=== PATIENT | male | born 1975 | race African-American/Black ===

== ENCOUNTER 2017-02-04 06:36 | Emergency (ER) | payer OTHER ==
[~2017-02-04] VITALS: Ht 177.8 cm; Wt 80.0 kg
[~2017-02-04 06:36] MED LIST: SELE2.5%T TOP
[2017-02-04 06:37] VITALS: BP 115/59; PULSE 73; RESP 16; TEMP 98.3; O2SAT 95
[2017-02-04] MEDS ORDERED: SODIUM CHLORIDE 0.9% FLUSH 10 ML FLUSH IVF PRN (07:00)
[2017-02-04 07:15] VITALS: O2SAT 98
--- NOTE | 2017-02-04 07:21 | PD ---
HPI Chief Complaint: Psychiatric Symptoms Time Seen by Provider: 07:02 Travel History International Travel<30 days: No Contact w/Intl Traveler<30days: No Traveled to known affect area: No History of Present Illness HPI 41yo M presents to the ED under staley act for suicidal ideation. Pt called and was found to be holding a razor to cut his wrist but did not cut his wrist and instead [place] the razor [place] the [employer]. As per staley act, pt may have taken some pills too but pt is refusing to speak and answer questions. Pt is awake and alert. Refuse to answer questions. No signs of trauma. Pt has been here before for similar suicidal ideation. Pt was here on 01/17/17 and found to have drug induced mood disorder. PFSH Past Medical History Blood Disorders: No Anxiety: No Depression: Yes Cardiac Catheterization: No Cardiovascular Problems: No High Cholesterol: No Congestive Heart Failure: No Diabetes: No Endocrine: No Gastrointestinal Disorders: Yes GERD: Yes Genitourinary: No Hypertension: No Immune Disorder: No Implanted Vascular Access Dvce: No Musculoskeletal: No Neurologic: No Psychiatric: Yes Reproductive: No Respiratory: No Past Surgical History Surgical History: Unable to Obtain Coronary Artery Bypass Graft: No Family History Family Myocardial Infarction: Yes Social History Alcohol Use: Yes Tobacco Use: Yes Substance Use: Yes (ALCOHOL, COCAINE, MARIJUANA- PER PATIENT) Allergies-Medications (Allergen,Severity, Reaction): Coded Allergies: No Known Allergies (Verified , 02/04/17) Reported Meds & Prescriptions Reported Meds & Active Scripts Active Active Prescriptions or Reported Medications Unobtainable Review of Systems ROS Limitations: Clinical Condition Physical Exam Narrative GENERAL: 41yo M not in distress. SKIN: Focused skin assessment warm/dry. HEAD: Atraumatic. Normocephalic. EYES: Pupils equal and round at 3mm bilaterally. ENT: No nasal bleeding or discharge. Mucous membranes pink and moist. NECK: Trachea midline. No JVD. CARDIOVASCULAR: Regular rate and rhythm. No murmur appreciated. RESPIRATORY: No accessory muscle use. Clear to auscultation. Breath sounds equal bilaterally. GASTROINTESTINAL: Abdomen soft, non-tender, nondistended. MUSCULOSKELETAL: No obvious deformities. No clubbing. No cyanosis. No edema. NEUROLOGICAL: Awake and alert. Not answering questions or following commands but has legs cross and able to move extremities. Data Data Last Documented VS Vital Signs Date Time Temp Pulse Resp B/P Pulse Ox O2 Delivery O2 Flow Rate FiO2 02/05/17 06:07 69 18 130/76 98 Room Air 02/04/17 06:37 98.3 Orders Electrocardiogram (02/04/17 06:49) Complete Blood Count With Diff (02/04/17 06:49) Comprehensive Metabolic Panel (02/04/17 06:49) Iv Access Insert/Monitor (02/04/17 06:49) Ecg Monitoring (02/04/17 06:49) Oximetry (02/04/17 06:49) Psych Screen (02/04/17 06:49) Sodium Chloride 0.9% Flush (Ns Flush) (02/04/17 07:00) Drug Screen, Random Urine (02/04/17 06:49) Alcohol (Ethanol) (02/04/17 06:49) Salicylates (Aspirin) (02/04/17 06:49) Tylenol (Acetaminophen) (02/04/17 06:49) Ct Brain W/O Iv Contrast(Rout) (02/04/17 ) Restraints Non-Violent SUZANNE.Q3H (02/04/17 09:11) Restraints Non-Violent SUZANNE.Q3H (02/04/17 11:00) Diet Regular Basic (02/05/17 Breakfast) Labs Laboratory Tests Test 02/04/17 02/04/17 07:00 07:10 Urine Opiates Screen NEG Urine Barbiturates Screen NEG Urine Amphetamines Screen NEG Urine Benzodiazepines Screen NEG Urine Cocaine Screen POS Urine Cannabinoids Screen NEG White Blood Count 10.1 TH/MM3 Red Blood Count 5.11 MIL/MM3 Hemoglobin 15.1 GM/DL Hematocrit 44.9 % Mean Corpuscular Volume 87.9 FL Mean Corpuscular Hemoglobin 29.5 PG Mean Corpuscular Hemoglobin 33.6 % Concent Red Cell Distribution Width 14.8 % Platelet Count 304 TH/MM3 Mean Platelet Volume 8.8 FL Neutrophils (%) (Auto) 65.9 % Lymphocytes (%) (Auto) 26.4 % Monocytes (%) (Auto) 6.4 % Eosinophils (%) (Auto) 0.7 % Basophils (%) (Auto) 0.6 % Neutrophils # (Auto) 6.7 TH/MM3 Lymphocytes # (Auto) 2.7 TH/MM3 Monocytes # (Auto) 0.6 TH/MM3 Eosinophils # (Auto) 0.1 TH/MM3 Basophils # (Auto) 0.1 TH/MM3 CBC Comment DIFF FINAL Differential Comment Sodium Level 140 MEQ/L Potassium Level 3.7 MEQ/L Chloride Level 103 MEQ/L Carbon Dioxide Level 23.4 MEQ/L Anion Gap 14 MEQ/L Blood Urea Nitrogen 10 MG/DL Creatinine 1.61 MG/DL Estimat Glomerular Filtration 58 ML/MIN Rate Random Glucose 107 MG/DL Calcium Level 9.5 MG/DL Total Bilirubin 0.3 MG/DL Aspartate Amino Transf 19 U/L (AST/SGOT) Alanine Aminotransferase 22 U/L (ALT/SGPT) Alkaline Phosphatase 76 U/L Total Protein 8.3 GM/DL Albumin 4.4 GM/DL Salicylates Level 2.9 MG/DL Acetaminophen Level LESS THAN 2.0 MCG/ML Ethyl Alcohol Level 7 MG/DL [facility] Medical Decision Making Medical Screen Exam Complete: Yes Emergency Medical Condition: Yes Interpretation(s) EKG: Sinus bradycardia at 58bpm. LAD. Narrow QRS. QTc 393ms. Differential Diagnosis Drug induced mood disorder vs. psychosis Narrative Course 41yo M brought in as staley act for suicidal ideation. Pt will only talk if you agitate him. Labs reviewed, no leukocytosis. Creatinine elevated but at baseline. CT brain showed moderate motion artifact, negative for acute process. Urine drug screen positive cocaine. Pt is being a threat to himself and others. Pt was initially placed in soft restraints but pulled them out so eventually placed in leather restraints. Pt is medically clear to be seen by psych. Diagnosis Primary Impression: Mood disorder, drug-induced Scripts Unable to Obtain Active Prescriptions or Reported Meds Kate Wilson DO Feb 04, 2017 07:20
[2017-02-04 07:31] LABS: AUTOMATED NEUTROPHIL # 6.7 TH/MM3 (1.8-7.7); BASOPHIL # 0.1 TH/MM3 (0-0.2); BASOPHIL % 0.6 % (0.0-2.0); EOSINOPHIL # 0.1 TH/MM3 (0-0.4); EOSINOPHIL % 0.7 % (0.0-4.0); HEMATOCRIT 44.9 % (39.0-51.0); HEMO FLAGS DIFF FINAL; LYMPH % 26.4 % (9.0-44.0); LYMPHOCYTE # 2.7 TH/MM3 (1.0-4.8); MEAN CELL VOLUME 87.9 FL (80.0-100.0); MEAN CORPUSCULAR HEMOGLOBIN 29.5 PG (27.0-34.0); MEAN CORPUSCULAR HGB CONC 33.6 % (32.0-36.0); MONO % 6.4 % (0.0-8.0); NEUT % 65.9 % (16.0-70.0); PLATELET COUNT 304 TH/MM3 (150-450); RED BLOOD COUNT 5.11 MIL/MM3 (4.50-5.90); RED CELL DISTRIBUTION WIDTH 14.8 % (11.6-17.2); WHITE BLOOD COUNT 10.1 TH/MM3 (4.0-11.0)
[2017-02-04 07:39] LABS: AMPHETAMINE, URINE NEG (NEG); BARBITURATES, URINE NEG (NEG); COCAINE, URINE POS (NEG)
[2017-02-04 07:48] LABS: ANION GAP 14 MEQ/L (5-15)
[2017-02-04 07:51] LABS: ACETAMINOPHEN LESS THAN 2.0 MCG/ML (10.0-30.0); ALKALINE PHOSPHATASE 76 U/L (45-117); ALT (GPT) 22 U/L (12-78); AST (GOT) 19 U/L (15-37); BICARBONATE 23.4 MEQ/L (21.0-32.0); BLOOD UREA NITROGEN 10 MG/DL (7-18); CHLORIDE 103 MEQ/L (98-107); GLOMERULAR FILTRATION RATE 58 ML/MIN (>89); POTASSIUM 3.7 MEQ/L (3.5-5.1); SODIUM (NA) 140 MEQ/L (136-145); TOTAL BILIRUBIN ADULT 0.3 MG/DL (0.2-1.0)
--- NOTE | 2017-02-04 08:54 | RADRPT ---
EXAM DATE/TIME: 02/04/2017 08:13 [facility] COMPARISON: No previous studies available for comparison. INDICATIONS : Altered mental status RADIATION DOSE: 35.27 CTDIvol (mGy) MEDICAL HISTORY : Gastroesophageal reflux disease. SURGICAL HISTORY : None. ENCOUNTER: Initial ACUITY: 1 day PAIN SCALE: Non-responsive LOCATION: cranial TECHNIQUE: Multiple contiguous axial images were obtained of the head. Using automated exposure control and adj ustment of the mA and/or kV according to patient size, radiation dose was kept as low as reasonably a chievable to obtain optimal diagnostic quality images. Moderate motion artifact is present. FINDINGS: CEREBRUM: The ventricles are normal for age. No evidence of midline shift, mass lesion, hemorrhage or acute in farction. No extra-axial fluid collections are seen. POSTERIOR FOSSA: The cerebellum and brainstem are intact. The 4th ventricle is midline. The cerebellopontine angle i s unremarkable. EXTRACRANIAL: The visualized portion of the orbits is intact. SKULL: The calvaria is intact. No evidence of skull fracture. CONCLUSION: Moderate motion artifact, negative for acute process. Preston Hernandez MD FACR on February 04, 2017 at 8:52 Board Certified Radiologist. This report was verified electronically.
[2017-02-04 14:00] VITALS: BP 151/93; PULSE 103; RESP 22; O2SAT 98
[2017-02-04 18:00] VITALS: BP 142/103; PULSE 96; RESP 18; O2SAT 97
[2017-02-04 21:23] VITALS: BP 135/98; PULSE 80; RESP 18; O2SAT 100
[2017-02-04 22:16] VITALS: BP 120/73; PULSE 84; RESP 18; O2SAT 97
[2017-02-05 02:21] VITALS: BP 124/73; PULSE 99; RESP 19; O2SAT 96
[2017-02-05 06:07] VITALS: BP 130/76; PULSE 69; RESP 18; O2SAT 98
--- NOTE | 2017-02-05 10:38 | EKG ---
Date Performed: 02/04/2017 Time Performed: 07:07:08 PTAGE: 41 years EKG: SINUS BRADYCARDIA BORDERLINE LEFT AXIS DEVIATION BORDERLINE ECG Compared to prior tracing n o significant change PREVIOUS TRACING : 08/10/2015 07.26 DOCTOR: Odilia Monroe Interpretating Date/Time 02/05/2017 10:33:26
--- NOTE | 2017-02-05 14:48 | PD ---
History of Present Illness Chief Complaint: Psychiatric Symptoms Time Seen by Provider: 14:30 Travel History International Travel<30 Days: No Contact w/Intl Traveler<30days: No Known affected area: No Legal Status Legal Status: Manning Act Manning Act Signed By: Bernard Manning Act Comment: 2016 @ 1814 History of Present Illness: 41-year-old male with recent history of suicidal behavior including holding a razor blade to his wrist and then throwing the razor blade at police. Multiple complaints of suicidal ideation with plan if he is not admitted. Admits to recent cocaine abuse as well as marijuana abuse and a history of other drug abuse. States that he uses cocaine to calm himself down. Patient was here approximately 2-3 weeks ago with similar behavior and similar complaints and a diagnosis of drug induced mood disorder. Additionally, the patient wants this physician to write him a medical excuse so that he will not lose his job at the [employer]. Patient also admits he has a mother who lives in [facility] and is supportive. He has a partner in a relationship and a place to live. Patient was confronted with his contradictory attitudes and behavior and at that point asked to leave. He is not threatening suicide at the moment but the patient is felt to be very manipulative and capable of acting out at any time. Despite these dangers, this physician does not feel it is appropriate to admit the patient for inpatient psychiatric treatment. This is not a license detoxed or rehabilitation facility and it is counter therapeutic to admit the patient and his manipulative state. PFSH Past Medical History Medical History: Denies Significant Hx Blood Disorders: No Anxiety: No Depression: Yes Cardiac Catheterization: No Cardiovascular Problems: No High Cholesterol: No Congestive Heart Failure: No Diabetes: No Endocrine: No Gastrointestinal Disorders: Yes GERD: Yes Genitourinary: No Hypertension: No Immune Disorder: No Implanted Vascular Access Dvce: No Musculoskeletal: No Neurologic: No Psychiatric: Yes Reproductive: No Respiratory: No Past Surgical History Surgical History: Unable to Obtain Coronary Artery Bypass Graft: No Psychiatric History Psychiatric History Hx Psychiatric Treatment: NONE PER PATIENT History of Inpatient Treatment: Yes Social History Hx Alcohol Use: Yes Hx Tobacco Use: Yes Hx Substance Use: Yes (ALCOHOL, COCAINE, MARIJUANA- PER PATIENT) Substance Use Type: Alcohol, Marijuana, Cocaine Allergies-Medications (Allergen,Severity, Reaction): Coded Allergies: No Known Allergies (Verified , 02/04/17) Reported Meds & Prescriptions Reported Meds & Active Scripts Active Active Prescriptions or Reported Medications Unobtainable Review of Systems ROS Limitations: Clinical Condition Except as stated in HPI: all other systems reviewed are Neg Exam Exam Limitations: Clinical Condition Alert: Yes [place]: Person, Place, Date, Situation Mood: Calm Affect: Appropriate Speech: Clear, Logical Eye Contact: Indirect Memory Intact: Immediate, Recent, Remote Insight/Judgement Adequate except impaired with regard to drug abuse. [facility] Medical Decision Making Medical Record Reviewed: Yes Assessment/Plan In my opinion, the patient does not meet criteria for Manning act because his main problem is cocaine abuse. Furthermore, he does not meet criteria for admission to inpatient psychiatry due to the cocaine abuse and his manipulative nature at this time. He was given an excuse from work for the last 2 days in case he decides to return to work. This physician acknowledges there are risks and discharging the patient home but feels we must accept those risks rather than give into the patient's manipulations. Patient is competent to make all medical decisions and is not psychotic or cognitively compromised in any way. Orders Diet Regular Basic (02/05/17 Breakfast) Diet Regular Basic (02/05/17 Lunch) Diet Regular Basic (02/05/17 Dinner) Results Vital Signs Date Time Temp Pulse Resp B/P Pulse Ox O2 Delivery O2 Flow Rate FiO2 02/05/17 06:07 69 18 130/76 98 Room Air 02/05/17 02:21 99 19 124/73 96 Room Air 02/04/17 22:16 84 18 120/73 97 Room Air 02/04/17 21:23 80 18 135/98 100 Room Air 02/04/17 18:00 96 18 142/103 97 Room Air Diagnosis Primary Impression: Cocaine abuse Referrals: [facility] (Out patient) call for appointment Departure Forms: Tests/Procedures Patient Instructions: General Instructions, Cocaine Abuse (ED) Prescriptions Unable to Obtain Active Prescriptions or Reported Meds Disposition: 01 DISCHARGE HOME Mac Wu MD Feb 05, 2017 14:48
== END 2017-02-05 15:39 | disposition home or self-care (01) ==
LOC: NEPE 06:36 → NEPJ 02-05 15:39
DX: F14.10 Cocaine abuse, uncomplicated (principal); R45.851 Suicidal ideations; F32.9 Major depressive disorder, single episode, unspecified; Z72.0 Tobacco use; R00.1 Bradycardia, unspecified; F10.10 Alcohol abuse, uncomplicated
CPT/HCPCS: 70450; 80053; 80307; 85025; 93005

== ENCOUNTER 2017-02-12 23:32 | Emergency (ER) | payer SELFPAY ==
[~2017-02-12] VITALS: Ht 170.2 cm; Wt 88.0 kg
[2017-02-12 23:33] VITALS: BP 145/94; PULSE 86; RESP 24; TEMP 98.7; O2SAT 100
[2017-02-12] MEDS ORDERED: ASPIRIN 81 MG CHEW TAB PO ONE (23:45)
[2017-02-12] MEDS ORDERED: SODIUM CHLORIDE 0.9% FLUSH 10 ML FLUSH IVF PRN (23:45)
[2017-02-12] MEDS ORDERED: SODIUM CHLORID 0.9% 500 ML INJ 500 ML IV ONE (23:45)
[2017-02-13 00:01] LABS: AUTOMATED NEUTROPHIL # 4.6 TH/MM3 (1.8-7.7); BASOPHIL # 0.1 TH/MM3 (0-0.2); BASOPHIL % 1.1 % (0.0-2.0); EOSINOPHIL # 0.2 TH/MM3 (0-0.4); EOSINOPHIL % 1.8 % (0.0-4.0); HEMATOCRIT 36.4 % (39.0-51.0); LYMPH % 41.1 % (9.0-44.0); MEAN CELL VOLUME 85.2 FL (80.0-100.0); MEAN CORPUSCULAR HEMOGLOBIN 30.7 PG (27.0-34.0); MONO % 9.2 % (0.0-8.0); NEUT % 46.8 % (16.0-70.0); PLATELET COUNT 303 TH/MM3 (150-450); RED BLOOD COUNT 4.27 MIL/MM3 (4.50-5.90); RED CELL DISTRIBUTION WIDTH 13.9 % (11.6-17.2); WHITE BLOOD COUNT 9.8 TH/MM3 (4.0-11.0)
[2017-02-13 00:05] LABS: HEMO FLAGS AUTO DIFF
--- NOTE | 2017-02-13 00:05 | RADRPT ---
EXAM DATE/TIME: 02/12/2017 23:44 [facility] COMPARISON: No previous studies available for comparison. INDICATIONS : Chest pain. MEDICAL HISTORY : None. SURGICAL HISTORY : None. ENCOUNTER: Initial ACUITY: 1 day PAIN SCORE: 0/10 LOCATION: Bilateral chest FINDINGS: A single view of the chest demonstrates the lungs to be symmetrically aerated without evidence of mas s, infiltrate or effusion. The cardiomediastinal contours are unremarkable. Osseous structures are intact. CONCLUSION: No acute disease. Rodolfo Mcdowell MD on February 13, 2017 at 0:03 Board Certified Radiologist. This report was verified electronically.
[2017-02-13 00:18] VITALS: BP 168/81; PULSE 72; RESP 18; O2SAT 99
[2017-02-13 00:20] LABS: APTT (PATIENT) 26.4 SEC (24.3-30.1); PROTHROMBIN TIME - PATIENT 10.7 SEC (9.8-11.6)
--- NOTE | 2017-02-13 00:21 | PD ---
HPI Chief Complaint: Cardiac Complaint Time Seen by Provider: 23:34 Travel History International Travel<30 days: No Contact w/Intl Traveler<30days: No Traveled to known affect area: No History of Present Illness HPI The patient is a 42 year old male who presents to the [facility] emergency department with a history of awakening from sound sleep with a sensation that his heart was racing. The patient reports that he had an associated dry throat and shortness of breath. The patient reports that prior to going to sleep at approximately 9 PM he did use that he thought was cocaine. He reports that when he used that he did not feel the same effects, therefore he is concerned that it was something else that he took. The patient reports that he had a dry throat prior to going to sleep. He denies having any chest pain. The patient was brought in by ambulance services was noted initially to have a sinus tachycardia with heart rate in the 130s. On my arrival to the room, the patient 's heart rate is in the 80s. He denies having any history of coronary artery disease. The patient denies any recent fevers, cough, congestion, neck pain, abdominal pain, vomiting, diarrhea, urinary symptoms, or neurologic symptoms. [facility] Past Medical History Narrative Medical The patient's past medical history is significant for tobacco use, cocaine use. Blood Disorders: No Anxiety: No Depression: Yes Cardiac Catheterization: No Cardiovascular Problems: No High Cholesterol: No Congestive Heart Failure: No Diabetes: No Endocrine: No Gastrointestinal Disorders: Yes GERD: Yes Genitourinary: No Hypertension: No Immune Disorder: No Implanted Vascular Access Dvce: No Musculoskeletal: No Neurologic: No Psychiatric: Yes Reproductive: No Respiratory: No Past Surgical History Narrative Surgical The patient's past surgical history is reportedly none. Coronary Artery Bypass Graft: No Other Surgery: No Family History Family Myocardial Infarction: Yes Social History Alcohol Use: Yes (1-3 BEERS PER DAY) Tobacco Use: Yes (1 PACK Q 3 DAYS) Substance Use: Yes (ALCOHOL, COCAINE, MARIJUANA- PER PATIENT) Allergies-Medications (Allergen,Severity, Reaction): Coded Allergies: No Known Allergies (Verified , 02/12/17) Reported Meds & Prescriptions Reported Meds & Active Scripts Active Active Prescriptions or Reported Medications Unobtainable Review of Systems Except as stated in HPI: all other systems reviewed are Neg General / Constitutional: No: Fever Eyes: No: Visual changes HENT: No: Headaches Cardiovascular: Positive: Chest Pain or Discomfort Respiratory: Positive: Shortness of Breath Gastrointestinal: No: Nausea, Vomiting, Diarrhea, Abdominal Pain Genitourinary: No: Dysuria Musculoskeletal: No: Pain Skin: No Rash Neurologic: No: Weakness, Focal Abnormalities, Change in Mentation, Sensory Disturbance Psychiatric: Positive: Substance Abuse, No: Depression, Suicidal Ideations, Mood Disorder, Homicidal Ideation Endocrine: No: Polydipsia Hematologic/Lymphatic: No: Easy Bruising Physical Exam Narrative General: The patient is a well-developed well-nourished female in no acute distress. Head and Neck exam: Head is normocephalic atraumatic. Eyes: EOMI, pupils are equal round and reactive to light. Nose: Midline septum with pink mucous membranes Mouth: Dentition unremarkable. Moist mucus membranes. Posterior oropharynx is not erythematous. No tonsillar hypertrophy. Uvula midline. Airway patent. Neck: No palpable lymphadenopathy. No nuchal rigidity. No thyromegaly. Cardiovascular: Regular rate and rhythm without murmurs, gallops, or rubs. No pulse deficit to the extremities simultaneously auscultation and palpation of his radial artery. Lungs: Clear to auscultation bilaterally. No wheezes, rhonchi, or rales. Abdomen: Soft, without tenderness to palpation in all 4 quadrants of the abdomen. No guarding, rebound, or rigidity. Normal bowel sounds are audible. No tenderness on palpation of McBurney's point. Extremities: No clubbing, cyanosis, or edema. 2+ pulses in all 4 extremities. Back: No spinous process tenderness to palpation. No costovertebral angle tenderness to palpation. Neurologic Exam: Cranial nerves 2-12 were intact on exam. Strength is 5/5 in all 4 extremities. No sensory deficits noted. Skin Exam: No rash noted. Intact skin that is warm and dry. Data Data Last Documented VS Vital Signs Date Time Temp Pulse Resp B/P Pulse Ox O2 Delivery O2 Flow Rate FiO2 02/13/17 00:50 84 20 142/96 99 Room Air 02/12/17 23:33 98.7 Orders Electrocardiogram (02/12/17 23:38) B-Type Natriuretic Peptide (02/12/17 23:38) Ckmb (Isoenzyme) Profile (02/12/17 23:38) Complete Blood Count With Diff (02/12/17 23:38) Comprehensive Metabolic Panel (02/12/17 23:38) Magnesium (Mg) (02/12/17 23:38) Prothrombin Time / Inr (Pt) (02/12/17 23:38) Act Partial Throm Time (Ptt) (02/12/17 23:38) Troponin I (02/12/17 23:38) Lipase (02/12/17 23:38) Chest, Single Ap (02/12/17 23:38) Ecg Monitoring (02/12/17 23:38) Bilateral Bp Monitoring (02/12/17 23:38) Iv Access Insert/Monitor (02/12/17 23:38) Oximetry (02/12/17 23:38) Oxygen Administration (02/12/17 23:38) Aspirin Chew (Aspirin Chew) (02/12/17 23:45) Sodium Chloride 0.9% Flush (Ns Flush) (02/12/17 23:45) Sodium Chlorid 0.9% 500 Ml Inj (Ns 500 M (02/12/17 23:45) Drug Screen, Random Urine (02/13/17 00:06) Alcohol (Ethanol) (02/13/17 00:06) Salicylates (Aspirin) (02/13/17 00:06) Tylenol (Acetaminophen) (02/13/17 00:06) CKMB (02/12/17 23:41) CKMB% (02/12/17 23:41) Sodium Chlor 0.9% 1000 Ml Inj (Ns 1000 M (02/13/17 01:30) Sodium Chlorid 0.9% 500 Ml Inj (Ns 500 M (02/13/17 02:00) Labs Laboratory Tests Test 02/12/17 02/13/17 02/13/17 23:41 00:20 00:38 White Blood Count 9.8 TH/MM3 Red Blood Count 4.27 MIL/MM3 Hemoglobin 13.1 GM/DL Hematocrit 36.4 % Mean Corpuscular Volume 85.2 FL Mean Corpuscular Hemoglobin 30.7 PG Mean Corpuscular Hemoglobin 36.0 % Concent Red Cell Distribution Width 13.9 % Platelet Count 303 TH/MM3 Mean Platelet Volume 8.8 FL Neutrophils (%) (Auto) 46.8 % Lymphocytes (%) (Auto) 41.1 % Monocytes (%) (Auto) 9.2 % Eosinophils (%) (Auto) 1.8 % Basophils (%) (Auto) 1.1 % Neutrophils # (Auto) 4.6 TH/MM3 Lymphocytes # (Auto) 4.0 TH/MM3 Monocytes # (Auto) 0.9 TH/MM3 Eosinophils # (Auto) 0.2 TH/MM3 Basophils # (Auto) 0.1 TH/MM3 CBC Comment AUTO DIFF Differential Comment AUTO DIFF CONFIRMED Prothrombin Time 10.7 SEC Prothromb Time International 1.0 RATIO Ratio Activated Partial 26.4 SEC Thromboplast Time Sodium Level 140 MEQ/L Potassium Level 4.2 MEQ/L Chloride Level 106 MEQ/L Carbon Dioxide Level 25.9 MEQ/L Anion Gap 8 MEQ/L Blood Urea Nitrogen 12 MG/DL Creatinine 1.49 MG/DL Estimat Glomerular Filtration 63 ML/MIN Rate Random Glucose 106 MG/DL Calcium Level 9.3 MG/DL Magnesium Level 2.2 MG/DL Total Bilirubin LESS THAN 0.1 MG/DL Aspartate Amino Transf 34 U/L (AST/SGOT) Alanine Aminotransferase 49 U/L (ALT/SGPT) Alkaline Phosphatase 69 U/L Total Creatine Kinase 977 U/L Creatine Kinase MB 4.4 NG/ML Creatine Kinase MB % 0.5 % Troponin I LESS THAN 0.02 NG/ML B-Type Natriuretic Peptide 27 PG/ML Total Protein 6.9 GM/DL Albumin 3.5 GM/DL Lipase 79 U/L Salicylates Level 2.5 MG/DL Acetaminophen Level LESS THAN 2.0 MCG/ML Ethyl Alcohol Level LESS THAN 3 MG/DL Urine Opiates Screen NEG Urine Barbiturates Screen NEG Urine Amphetamines Screen NEG Urine Benzodiazepines Screen NEG Urine Cocaine Screen POS Urine Cannabinoids Screen NEG MDM Medical Decision Making Medical Screen Exam Complete: Yes Emergency Medical Condition: Yes Medical Record Reviewed: Yes Interpretation(s) Last Impressions Chest X-Ray 02/12/17 9093 Signed Impressions: Service Date/Time: Sunday, February 12, 2017 23:44 - CONCLUSION: No acute disease. Rodolfo Mcdowell MD Differential Diagnosis Cocaine-induced palpitations, versus other substance induced tachycardia, versus acute coronary syndrome, versus anxiety disorder, versus electrolyte abnormality, versus dehydration Narrative Course During the course of the patients emergency department visit, the patients history, examination, and differential diagnosis were reviewed with the patient. The patient had IV access obtained and blood work sent for analysis. The patient's best on a air sampling and monitoring with oximetry and blood pressure monitoring. The patient's electronic medical record was reviewed. The patient was admitted to the chest pain center last and April 2015 and had a negative stress test done at that time. An EKG done on arrival shows a sinus rhythm heart rate of 74, no acute ST segment elevation, T waves are inverted in V1, lead 3, no acute ST segment depression. QRS duration is 85 ms, QTC is 379 ms. No delta waves noted. The patient was provided normal saline a 500 mL bolus 1, aspirin 162 mg by mouth 1. The patients laboratory studies were reviewed and remarkable for a white count of 9.8, hemoglobin 13.1, platelets 303 with 9.2 monocytes. CMP is remarkable for creatinine of 1.49, total bilirubin less than 0.1, CPK 977 with an MB percent of 0.5, troponin I less than 0.02, BNP is 27, lipase 79, PT PTT within normal limits, urine drug screen is positive for cocaine, salicylate 2.5, acetaminophen less than 2, alcohol less than 3. Radiology studies were reviewed and remarkable for a chest x-ray that shows no acute abnormality. The patient was given an additional 1-1/2 L of normal saline for his elevated CPK which is likely related to cocaine use. He is encouraged to avoid cocaine as this can cause palpitations and chest pain. The patient was agreeable with this plan. The patient reports feeling improved. The patient is resting comfortably and feels better, is alert and in no distress. The patients results and examination findings were discussed with the patient. The repeat examination is unremarkable and benign. The history, exam, diagnostic testing, and current condition do not suggest any significant pathology to warrant further testing, continued ED treatment, admission, or surgical evaluation at this point. The vital signs have been stable. The patient does not have uncontrollable pain, intractable vomiting, or other significant symptoms. The patient's condition is stable and appropriate for discharge. The patient will pursue further outpatient evaluation with a primary care physician or other designated or consulting physician as indicated in the discharge instructions. The patient expressed understanding and was agreeable with this plan. Diagnosis Primary Impression: Palpitations Additional Impression: Cocaine use Referrals: Primary Care Physician 2 days Patient Instructions: General Instructions, Palpitations (ED) Departure Forms: Tests/Procedures, Work Release Enter return to work date: Feb 14, 2017 Scripts Unable to Obtain Active Prescriptions or Reported Meds Disposition: 01 DISCHARGE HOME Condition: Bina Mccoy MD Feb 13, 2017 00:21
[2017-02-13 00:26] LABS: ALKALINE PHOSPHATASE 69 U/L (45-117); ALT (GPT) 49 U/L (12-78); ANION GAP 8 MEQ/L (5-15); AST (GOT) 34 U/L (15-37); BICARBONATE 25.9 MEQ/L (21.0-32.0); BLOOD UREA NITROGEN 12 MG/DL (7-18); CHLORIDE 106 MEQ/L (98-107); CREATINE KINASE 977 U/L (39-308); GLOMERULAR FILTRATION RATE 63 ML/MIN (>89); MAGNESIUM 2.2 MG/DL (1.5-2.5); POTASSIUM 4.2 MEQ/L (3.5-5.1); SODIUM (NA) 140 MEQ/L (136-145); TOTAL BILIRUBIN ADULT LESS THAN 0.1 MG/DL (0.2-1.0)
[2017-02-13 00:39] LABS: CKMB 4.4 NG/ML (0.5-3.6)
[2017-02-13 00:50] VITALS: BP 142/96; PULSE 84; RESP 20; O2SAT 99
[2017-02-13 01:01] LABS: AMPHETAMINE, URINE NEG (NEG); BARBITURATES, URINE NEG (NEG); COCAINE, URINE POS (NEG)
[2017-02-13 01:07] LABS: ACETAMINOPHEN LESS THAN 2.0 MCG/ML (10.0-30.0)
[2017-02-13 01:17] LABS: SCAN/DIFF AUTO DIFF CONFIRMED
[2017-02-13] MEDS ORDERED: SODIUM CHLOR 0.9% 1000 ML INJ 1,000 ML IV ONE (01:30)
[2017-02-13] MEDS ORDERED: SODIUM CHLORID 0.9% 500 ML INJ 500 ML IV ONE (02:00)
[2017-02-13 02:42] VITALS: BP 140/85
--- NOTE | 2017-02-13 11:54 | EKG ---
Date Performed: 02/12/2017 Time Performed: 23:41:39 PTAGE: 42 years EKG: Sinus rhythm BORDERLINE LEFT AXIS DEVIATION BORDERLINE ECG PREVIOUS TRACING : 02/04/2017 07.07 DOCTOR: Torres Up Interpretating Date/Time 02/13/2017 11:50:49
== END 2017-02-13 02:43 | disposition home or self-care (01) ==
LOC: NEPE 23:32
DX: R00.2 Palpitations (principal); F14.90 Cocaine use, unspecified, uncomplicated; R06.02 Shortness of breath; F17.210 Nicotine dependence, cigarettes, uncomplicated; R94.31 Abnormal electrocardiogram [ECG] [EKG]
CPT/HCPCS: 71010; 80053; 80307; 82550; 82552; 83690; 83735; 83880; 84484; 85025; 85610; 85730; 93005; 96360; 99285; J7030; J7040

== ENCOUNTER 2017-04-27 19:10 | Emergency (ER) | payer SELFPAY ==
[~2017-04-27] VITALS: Ht 170.2 cm; Wt 92.0 kg
[2017-04-27 19:13] VITALS: BP 125/74; PULSE 75; RESP 16; TEMP 98.1; O2SAT 99
[2017-04-27] MEDS ORDERED: CEPHALEXIN MONOHYDRATE 500 MG CAP PO ONE (21:15)
[2017-04-27] MEDS ORDERED: CEPH500C PO (21:16)
--- NOTE | 2017-04-27 21:24 | PD ---
HPI Chief Complaint: Laceration/Skin Injury Time Seen by Provider: 21:19 Travel History International Travel<30 days: No Contact w/Intl Traveler<30days: No Traveled to known affect area: No History of Present Illness HPI 42-year-old [id number] black male presents to emergency Department with lacerations to his left ring and middle finger. The patient was cutting bread in preparation for a peanut butter and jelly sandwich. He states that he was upset over the cost of the peanut butter. He lacerated the volar aspects of these 2 fingers. He is up-to-date with immunizations. He denies any numbness, tingling or weakness. Pain is mild. No other injury. PFSH Past Medical History Blood Disorders: No Anxiety: No Depression: Yes Cardiac Catheterization: No Cardiovascular Problems: No High Cholesterol: No Congestive Heart Failure: No Diabetes: No Diminished Hearing: No Endocrine: No Gastrointestinal Disorders: Yes GERD: Yes Genitourinary: No Hypertension: No Immune Disorder: No Implanted Vascular Access Dvce: No Musculoskeletal: No Neurologic: No Psychiatric: Yes Reproductive: No Respiratory: No Tetanus Vaccination: < 5 Years Past Surgical History Surgical History: No Previous Surgery Coronary Artery Bypass Graft: No Other Surgery: No Family History Family Myocardial Infarction: Yes Social History Alcohol Use: Yes (WEEKENDS) Tobacco Use: Yes (1 PACK Q 3-4 DAYS) Substance Use: Yes (ALCOHOL, COCAINE, MARIJUANA- PER PATIENT) Allergies-Medications (Allergen,Severity, Reaction): Coded Allergies: No Known Allergies (Verified , 04/27/17) Reported Meds & Prescriptions Reported Meds & Active Scripts Active Cephalexin 500 Mg Cap 500 Mg PO Q6H Review of Systems Except as stated in HPI: all other systems reviewed are Neg Physical Exam Narrative GENERAL: This is a well-nourished, well-developed patient, in no apparent distress. SKIN: No rashes, ecchymoses or lesions. Warm and dry. HEAD: Atraumatic. Normocephalic. EYES: PERRL, EOMI, no discharge or injection. No scleral icterus. EARS: Clear NOSE: Nasal turbinates appear normal. THROAT: Mucosa pink and moist. Airway patent. NECK: Trachea midline. supple, moves head freely. LUNGS: Clear to auscultation. CV: Regular in rhythm. ABDOMEN: Soft nontender. EXT: No clubbing cyanosis or edema. Examination of the left ring finger reveals a 2 cm laceration through the subcutaneous tissues of the ring phalanx through the flexor sheath but it does not penetrate the flexor tendon. He has full range of motion and good strength. Intact sensation. There is a 1.2 cm laceration to the mid volar pad of the middle finger. This goes into the subcutaneous tissues but there is no deep injury. Patient's neurovascular intact. Range of motion Data Data Last Documented VS Vital Signs Date Time Temp Pulse Resp B/P Pulse Ox O2 Delivery O2 Flow Rate FiO2 04/27/17 19:13 98.1 75 16 125/74 99 Room Air Orders Cephalexin (Keflex) (04/27/17 21:15) Splint Or Brace Apply/Monitor (04/27/17 21:17) MDM Medical Decision Making Medical Screen Exam Complete: Yes Emergency Medical Condition: Yes Medical Record Reviewed: Yes Differential Diagnosis MDM: High Differential diagnoses: Fracture, sprain, strain, dislocation, contusion, neurovascular injury Narrative Course Patient's lacerations are closed with sutures. Patient is placed in a finger splint to the ring finger. Patient given 1 g of Keflex by mouth. Diagnosis Primary Impression: deep left ring finger laceration Additional Impression: Laceration of left middle finger Qualified Code: S61.213A - Laceration of left middle finger without foreign body without damage to nail, initial encounter Patient Instructions: General Instructions Additional Instructions: Rest. Elevation. Keep clean and dry. Keep your splint on and keep the finger elevated. Daily wound care with soap, water, Neosporin. Tylenol and Advil for pain. Recheck with a primary care doctor or a orthopedist in the next 3-5 days. Sutures out in 14 days. Return to the ER for any problems. Med/Other Pt SpecificInfo: Prescription(s) given Scripts Cephalexin 500 Mg [id number] Mg PO Q6H #28 CAP Prov:Kasey Castrejon MD 04/27/17 Disposition: 01 DISCHARGE HOME Condition: Stable Hugh Hylton Apr 27, 2017 21:24
== END 2017-04-27 21:47 | disposition home or self-care (01) ==
LOC: NEPD 19:10 → NEPK 21:47
DX: S61.213A Laceration without foreign body of left middle finger without damage to nail, initial encounter (principal); F32.9 Major depressive disorder, single episode, unspecified; K21.9 Gastro-esophageal reflux disease without esophagitis; F17.200 Nicotine dependence, unspecified, uncomplicated; W26.0XXA Contact with knife, initial encounter; Y93.G1 Activity, food preparation and clean up
CPT/HCPCS: 12002

== ENCOUNTER 2017-04-29 13:22 | Emergency (ER) | payer SELFPAY ==
[~2017-04-29] VITALS: Ht 167.6 cm; Wt 95.0 kg
[~2017-04-29 13:22] MED LIST changes: +CEPH500C PO; -SELE2.5%T TOP
[2017-04-29 13:23] VITALS: BP 132/75; PULSE 64; RESP 20; TEMP 98.5; O2SAT 99
--- NOTE | 2017-04-29 14:31 | PD ---
Physical Exam Time Seen by Provider: 14:29 Narrative 42yo M c/o Left finger 3rd and 4th lacerations that was repaired on April 27. Has not filled antibiotic prescription. Has not changed bandage. Now c/o that he cannot feel his L 3rd finger. Patient seen in triage. Awaiting bed placement. VS reviewed. Data Data Last Documented VS Vital Signs Date Time Temp Pulse Resp B/P Pulse Ox O2 Delivery O2 Flow Rate FiO2 04/29/17 13:23 98.5 64 20 132/75 99 Room Air MDM Supervised Visit with MARIA TERESA: Kathia Aparicio Apr 29, 2017 14:31
--- NOTE | 2017-04-29 16:41 | PD ---
HPI Chief Complaint: Wound/Suture/Staple Re-Check Time Seen by Provider: 16:35 Travel History International Travel<30 days: No Contact w/Intl Traveler<30days: No Traveled to known affect area: No History of Present Illness HPI 42-year-old right-hand dominant male presents to the ED for evaluation of wound recheck of laceration the third and fourth digits of the left hand. Patient states that he's has not changed the dressing. He states he has not been able to have the Keflex filled. He endorses paresthesias in the ring finger. He denies fevers, chills, nausea or vomiting. PFSH Past Medical History Blood Disorders: No Anxiety: No Depression: Yes Cardiac Catheterization: No Cardiovascular Problems: No High Cholesterol: No Congestive Heart Failure: No Diabetes: No Diminished Hearing: No Endocrine: No Gastrointestinal Disorders: Yes GERD: Yes Genitourinary: No Hypertension: No Immune Disorder: No Implanted Vascular Access Dvce: No Musculoskeletal: No Neurologic: No Psychiatric: Yes Reproductive: No Respiratory: No Past Surgical History Coronary Artery Bypass Graft: No Other Surgery: No Social History Alcohol Use: Yes (WEEKENDS) Tobacco Use: Yes (1 PACK Q 3-4 DAYS) Substance Use: Yes (ALCOHOL, COCAINE, MARIJUANA- PER PATIENT) Allergies-Medications (Allergen,Severity, Reaction): Coded Allergies: No Known Allergies (Verified , 04/27/17) Reported Meds & Prescriptions Reported Meds & Active Scripts Active Cephalexin 500 Mg Cap 500 Mg PO Q6H Review of Systems Except as stated in HPI: all other systems reviewed are Neg Physical Exam Narrative GENERAL: Well-nourished, well-developed patient. SKIN: Focused skin assessment warm/dry. Well healing suture lines of the palmar aspects of the third and fourth fingers of the left hand. No warmth, erythema, edema, cellulitis streaking. HEAD: Normocephalic. EYES: No scleral icterus. No injection or drainage. NECK: Supple, trachea midline. No JVD or lymphadenopathy. CARDIOVASCULAR: Regular rate and rhythm without murmurs, gallops, or rubs. RESPIRATORY: Breath sounds equal bilaterally. No accessory muscle use. GASTROINTESTINAL: Abdomen soft, non-tender, nondistended. MUSCULOSKELETAL: No cyanosis, or edema. FOCUSED UPPER LEFT EXTREMITY EXAM: 2+ radial pulse. Range of motion testing deferred secondary to tension on the suture line. Sensation intact to light touch distally. Cap refill less than 2 seconds. BACK: Nontender without obvious deformity. No CVA tenderness. Data Data Last Documented VS Vital Signs Date Time Temp Pulse Resp B/P Pulse Ox O2 Delivery O2 Flow Rate FiO2 04/29/17 13:23 98.5 64 20 132/75 99 Room Air Orders Ibuprofen (Motrin) (04/29/17 16:45) MDM Medical Decision Making Medical Screen Exam Complete: Yes Emergency Medical Condition: Yes Differential Diagnosis Wound recheck versus dehiscence versus cellulitis versus other Narrative Course 42-year-old right-hand dominant male presents to the ED for evaluation of wound recheck of laceration the third and fourth digits of the left hand. Patient states that he's has not changed the dressing. He states he has not been able to have the Keflex filled. He endorses paresthesias in the ring finger. He denies fevers, chills, nausea or vomiting. Vitals reviewed. Physical exam reveals a well-appearing black male in no acute distress. The suture lines are well healing without signs of infection. The fingers are neurovascularly intact. Range of motion testing deferred secondary to stressing the suture lines. I explained to the patient that Keflex is free at [facility] and he should have it filled and start taking it as prescribed as soon as possible. I also suggested that he use 600 mg ibuprofen 3 times a day for persistent pain and throbbing. He should have the sutures removed in 7-10 days. He indicated understanding instructions and is agreeable care plan. He is stable and discharged home. Diagnosis Primary Impression: Visit for wound check Additional Impressions: Laceration of left ring finger Qualified Code: S61.215D - Laceration of left ring finger without foreign body without damage to nail, subsequent encounter Laceration of left middle finger Qualified Code: S61.213D - Laceration of left middle finger without foreign body without damage to nail, subsequent encounter Referrals: Hand Surgeon Patient Instructions: Care For Your Stitches (ED), General Instructions Departure Forms: Tests/Procedures, Work Release Enter return to work date: Apr 30, 2017 Special Instructions: No heavy use of the left hand until sutures are removed. Additional Instructions: Rest, hydrate. You may shower normally. Do not submerge the wound. After bathing pat of wound dry. Allow the wound to air dry for 10-15 minutes. Apply a thin layer of antibiotic ointment and a clean, dry dressing. Take the antibiotics as they are prescribed. Utilize [id number] pain medications, as described on the label, as needed. Suture removal in 10 days. Return to the ED for any urgent or emergent medical condition. Disposition: 01 DISCHARGE HOME Condition: Stable Atiya Draper Apr 29, 2017 16:41
[2017-04-29] MEDS ORDERED: IBUPROFEN 600 MG TAB PO ONE (16:45)
== END 2017-04-29 17:00 | disposition home or self-care (01) ==
LOC: NEPD 13:22
DX: Z51.89 Encounter for other specified aftercare (principal); S61.215D Laceration without foreign body of left ring finger without damage to nail, subsequent encounter; S61.213D Laceration without foreign body of left middle finger without damage to nail, subsequent encounter; K21.9 Gastro-esophageal reflux disease without esophagitis; F32.9 Major depressive disorder, single episode, unspecified; F17.200 Nicotine dependence, unspecified, uncomplicated; X58.XXXD Exposure to other specified factors, subsequent encounter
CPT/HCPCS: 99281

== ENCOUNTER 2018-03-05 08:57 | Inpatient (IN) | payer SELFPAY ==
[~2018-03-05] VITALS: Ht 180.3 cm; Wt 90.0 kg
[2018-03-05 09:05] VITALS: BP 156/83; RESP 16
[2018-03-05] MEDS ORDERED: LORazepam 2 MG/ML VIAL IM ONE ×2 (09:30→09:45)
[2018-03-05] MEDS ORDERED: HALOPERIDOL LACTATE 5 MG/ML AMP IM ONE (09:30)
--- NOTE | 2018-03-05 09:30 | PD ---
HPI Chief Complaint: Psychiatric Symptoms Time Seen by Provider: 09:15 Travel History International Travel<30 days: No Contact w/Intl Traveler<30days: No Traveled to known affect area: No History of Present Illness HPI 43-year-old -[place] male brought in under police escort under the Manning act for suicidal ideations and attempt. Police were called by the family as the patient was actively threatening to kill himself with a knife, and had locked himself in the bathroom and had a plastic bag over his head. Please had to break down the door to get to the patient. He is now handcuffed, and refusing to speak since placed in police custody. Patient actually attempted to choke himself with seatbelts in the police cruiser on the trip here from his home. Patient is not willing to verbalize or respond to questions. He has no known drug allergies. PFSH Past Medical History Medical History: Unable to Obtain Blood Disorders: No Anxiety: No Depression: Yes Cardiac Catheterization: No Cardiovascular Problems: No High Cholesterol: No Congestive Heart Failure: No Diabetes: No Diminished Hearing: No Endocrine: No Gastrointestinal Disorders: Yes GERD: Yes Genitourinary: No Hypertension: No Immune Disorder: No Implanted Vascular Access Dvce: No Musculoskeletal: No Neurologic: No Psychiatric: Yes Reproductive: No Respiratory: No Past Surgical History Coronary Artery Bypass Graft: No Other Surgery: No Social History Alcohol Use: Yes (WEEKENDS) Tobacco Use: Yes (1 PACK Q 3-4 DAYS) Substance Use: Yes (ALCOHOL, COCAINE, MARIJUANA- PER PATIENT) Allergies-Medications (Allergen,Severity, Reaction): Coded Allergies: No Known Allergies (Verified Allergy, Unknown, 03/05/18) Reported Meds & Prescriptions Reported Meds & Active Scripts Active Cephalexin 500 Mg Cap 500 Mg PO Q6H Review of Systems ROS Limitations: Uncooperative, Refused, Combative General / Constitutional: No: Fever Eyes: No: Visual changes HENT: No: Headaches Cardiovascular: No: Chest Pain or Discomfort Respiratory: No: Shortness of Breath Gastrointestinal: No: Abdominal Pain Genitourinary: No: Dysuria Musculoskeletal: No: Pain Skin: No Rash Neurologic: No: Weakness Psychiatric: No: Depression Endocrine: No: Polydipsia Hematologic/Lymphatic: No: Easy Bruising Physical Exam Exam Limitations: Uncooperative, Refused, Combative Narrative GENERAL: Patient appears stable. He is unwilling to talk. SKIN: Warm and dry. Normal color. Normal turgor. No obvious signs of trauma, lacerations, or wounds of any kind. HEAD: Atraumatic. Normocephalic. EYES: Pupils equal and round. No scleral icterus. No injection or drainage. ENT: No nasal bleeding or discharge. Mucous membranes pink and moist. Pharynx is clear. Airways patent. NECK: Trachea midline. Supple. CARDIOVASCULAR: Regular rate and rhythm. RESPIRATORY: No accessory muscle use. Clear to auscultation. Breath sounds equal bilaterally. MUSCULOSKELETAL: Extremities without clubbing, cyanosis, or edema. No obvious deformities. NEUROLOGICAL: Awake and alert. No obvious cranial nerve deficits. Motor grossly within normal limits. Five out of 5 muscle strength in the arms and legs. Normal speech. PSYCHIATRIC: Unable to assess due to the patient's uncooperative behavior. Data Data Last Documented VS Vital Signs Date Time Temp Pulse Resp B/P (MAP) Pulse Ox O2 Delivery O2 Flow Rate FiO2 03/05/18 09:05 16 156/83 (107) Orders Orders Psych Screen (03/05/18 09:09) Complete Blood Count With Diff (03/05/18 09:21) Comprehensive Metabolic Panel (03/05/18 09:21) Thyroid Stimulating Hormone (03/05/18 09:21) Urinalysis - C+S If Indicated (03/05/18 09:21) Haloperidol Inj (Haldol Inj) (03/05/18 09:30) Lorazepam Inj (Ativan Inj) (03/05/18 09:30) Restraints Violent (03/05/18 09:21) Drug Screen, Random Urine (03/05/18 09:21) Alcohol (Ethanol) (03/05/18 09:21) Haloperidol Inj (Haldol Inj) (03/05/18 09:37) Lorazepam Inj (Ativan Inj) (03/05/18 09:45) Admit To Inpatient Psych (03/05/18 ) Vital Signs (Adult) SUZANNE.Q12H.E (03/05/18 09:40) Activity Oob Ad Regina (03/05/18 09:40) Lorazepam (Ativan) (03/05/18 09:45) Lorazepam Inj (Ativan Inj) (03/05/18 09:45) Lorazepam (Ativan) (03/05/18 09:45) Lorazepam Inj (Ativan Inj) (03/05/18 09:45) Acetaminophen (Tylenol) (03/05/18 09:45) Magnesium Hydroxide Liq (Milk Of Magnesi (03/05/18 09:45) Al-Mag Hy-Si 40-40-4 Mg/Ml Liq (Mag-Al P (03/05/18 09:45) Nicotine 21 Mg Patch.24 Hr (Habitrol 21 (03/05/18 09:45) Basic Metabolic Panel (Bmp) (03/06/18 06:00) Lipid Profile (03/06/18 06:00) Hemoglobin (Hgb) A1c (03/06/18 06:00) Remove Old Patch (03/05/18 21:00) MDM Medical Decision Making Medical Screen Exam Complete: Yes Emergency Medical Condition: Yes Differential Diagnosis Manning act. Suicidal attempt. Suicidal ideation. Narrative Course Patient is uncooperative with all questioning and exam. He appears medically stable. Labs ordered per psychiatric protocol. Restraints are ordered. Patient is ordered to have lorazepam 1 mg IM, Haldol 5 mg IM. Psychiatric screening is ordered. Patient is medically clear for psychiatric evaluation Diagnosis Primary Impression: Medical clearance for psychiatric admission Admitting Information Admitting Physician Requests: Admit Condition: Stable Srinivas Atwood March 05, 2018 09:30
[2018-03-05] MEDS ORDERED: HALOPERIDOL LACTATE 5 MG/ML AMP IM STA (09:37)
[2018-03-05] MEDS ORDERED: MAGNESIUM HYDROXIDE SUSP 30 ML CUP PO PRN (09:45)
[2018-03-05] MEDS ORDERED: ALUMINUM/MAGNESIUM/SIMETH 30 ML CUP PO PRN (09:45)
[2018-03-05] MEDS ORDERED: LORazepam 0.5 MG TAB PO PRN (09:45)
[2018-03-05] MEDS ORDERED: LORazepam 2 MG/ML VIAL IM PRN ×2 (09:45)
[2018-03-05] MEDS ORDERED: ACETAMINOPHEN 325 MG TAB PO PRN (09:45)
[2018-03-05] MEDS ORDERED: LORazepam 1 MG TAB PO PRN (09:45)
[2018-03-05 10:00] VITALS: BP 127/83; PULSE 59; RESP 16; TEMP 98.6; O2SAT 98
[2018-03-05] MEDS: REMOVE OLD NICODERM (NICOTINE) PATCH T-DERMAL SCH (20:17)
[2018-03-06 05:50] VITALS: BP 111/55; PULSE 91; RESP 17; TEMP 98.5
[2018-03-06] MEDS: NICOTINE 21 MG/24 HR PATCH T-DERMAL SCH (09:00)
[2018-03-06] MEDS ORDERED: HALOPERIDOL LACTATE 5 MG/ML AMP IM ONE (09:15)
[2018-03-06] MEDS ORDERED: diphenhydrAMINE HCL 50 MG/ML VIAL IM ONE (09:15)
[2018-03-06] MEDS ORDERED: LORazepam 2 MG/ML VIAL IM ONE (09:15)
[2018-03-06] MEDS ORDERED: hydrOXYzine HCL 50 MG TAB PO PRN (13:00)
--- NOTE | 2018-03-06 13:10 | HHI.HP ---
Provisional Diagnosis Admission Date March 05, 2018 at 09:42 [place] I. Psychotic disorder, brief, history of cocaine abuse Certification of Person's Competence To Provide Express and Informed Consent I have personally examined Juliano Lima , a person being served at [facility] on, March 06, 2018 12:54. Express and informed consent means consent voluntarily given in writing, by a competent person, after sufficient explanation and disclosure of the subject matter involved to enable the person to make a knowing and willful decision without any element of force, fraud, deceit, duress, or other form of constraint or coercion. This person is 18 years of age or older, is not now known to be incompetent to consent to treatment with a guardian advocate, and does not have a health care surrogate or proxy currently making medical treatment decisions. I have found this person to be one of the following: [] Competent to provide express and informed consent, as defined above, for voluntary admission to this facility and is competent to provide express and informed consent for treatment. He/she has the consistent capacity to make well reasoned, willful, and knowing decisions concerning his or her medical or mental health treatment. The person fully and consistently understands the purpose of the admission for examination/placement and is fully capable of personally exercising all rights assured [place]] Incompetent to provide express and informed consent to voluntary admission, and this is incompetent to provide express and informed consent to treatment. The person must be transferred to involuntary status and a petition for a guardian advocate filed with the Circuit Court. [] Refusing to provide express and informed consent to voluntary admission but is competent to provide express and informed consent for treatment. The person must be discharged or transferred to involuntary status. Form shall be completed within 24 hours of a person's arrival at the receiving facility and filed in the clinical record of each person: 1. Admitted on a voluntary basis 2. Permitted to provide express and informed consent to his/her own treatment 3. Allowed to transfer from involuntary to voluntary status 4. Prior to permitting a person to consent to his or her own treatment after having been previously found incompetent to consent to treatment. History of Present Illness Capacity: Lacks Capacity Psych Chief Complaint: Patient psychotic with suicide attempt HPI Patient is a 43-year-old -[place] male who comes here under a Manning act of the [place] [employer] dated 03/05/18 at 083 2 AM that document reviewed essentially states law enforcement was contacted in reference to Juliano lima having a knife and locking himself in a bathroom. I made entry into the bathroom and found janie with a plastic bag over his head. Janie stated "no matter what you do I am going to kill myself" lizzy also made several attempts with the seatbelt around his neck in the marked patrol car. Patient was seen and screened in the ED cosigned by the PA and the emergency department physician. It appears patient's behavior was out of control to the point where he was in restraints of necessitated an emergency treatment order of Ativan and Haldol. However no labs were drawn at this point in time there is no documentation of any labs being drawn to verify urine toxicology and blood alcohol level or another metabolic conditions that might contribute to his behaviors. Patient was seen by me this morning with nurse Jen. Prior to my seeing patient he was allowed to take a shower however while in the shower he attempted to tie his clothing around his neck and put a towel over his face. He was removed from the shower and placed on a one-to-one observation level. Patient seen by me while on the one-to-one. He is lying quietly on his bed 2700. Patient's eyes are closed he is lying flat on his back he is refusing to answer any of my questions but appears he is aware of my speaking with him his feet are moving in a somewhat irritable manner. I attempted to explain my need to assess him for his capacity to make decisions concerning his care and help get a history. He refused to answer any questions. I also explained the possibility of a healthcare surrogate/guardian advocate. However as I was leaving the room staff regarding patient's lunch he rolled over, side started eating his lunch will continue to make no eye contact with me and refusing to answer any questions. We will have lab attempt again to get specimen from him. At this time if the patient does meet criteria for an involuntary psychiatric hospitalization thus I will do first opinion request second opinion. I also feel he does not have capacity and I will ask for health care surrogate and the guardian advocate. Review of our EMR shows multiple prior contacts with going back a number of years most of those mental health admissions are related to cocaine abuse. Review of Systems ROS Limitations: Clinical Condition, Uncooperative, Refused, Psychotic Past Psych History Psychological trauma history Unknown at this time due to patient's nonverbal Violence risk - others (6 mos) Unknown at this time due to patient's being nonverbal Violence risk - self (6 mos) Patient made suicidal gestures Substance Abuse History Drugs/Alcohol past 12 months Patient has long history of cocaine abuse, there is no urine toxicology drawn with this admission Past Family Social History Coded Allergies: No Known Allergies (Verified Allergy, Unknown, 03/05/18) Discontinued Scripts Cephalexin (Cephalexin) 500 Mg Cap, 500 MG PO Q6H for Infection, #28 CAP Prov:Kasey Castrejon MD 04/27/17 Current Medications Medications (Trade) Dose Ordered Sig/[place] Route Start Time Stop Time Status Last Admin (Ativan) 1 mg Q6H PRN PO 03/05/18 09:45 (Ativan Inj) 1 mg Q6H PRN IM 03/05/18 09:45 (Tylenol) 650 mg Q4H PRN PO 03/05/18 09:45 (Milk Of Magnesia Liq) 30 ml DAILY PRN PO 03/05/18 09:45 (Mag-Al Plus Susp Liq) 30 ml Q6H PRN PO 03/05/18 09:45 (Habitrol 21 Mg Patch.24 Hr) 1 patch DAILY T-DERMAL 03/05/18 09:45 Miscellaneous Information 1 HS T-DERMAL 03/05/18 21:00 Family Psych History Unknown at this time due to patient's being nonverbal Social History Unknown at this time due to patient's being nonverbal Patient's Strengths (min. 2) Patient able access healthcare Physical Exam Patient medically cleared ED low this medical clearance was done without any laboratory testing or urine toxicology or EKG or other imaging i Vital Signs Vital Signs Date Time Temp Pulse Resp B/P (MAP) Pulse Ox O2 Delivery O2 Flow Rate FiO2 03/05/18 13:43 03/05/18 10:00 98.6 59 16 98 Room Air Lab Results No labs blood or urine was done on admission in the ED Mental Status Examination Appearance: Disheveled Consciousness: Alert Orientation: Person (Difficult to ascertain due to patient's being nonverbal) Motor Activity: Normal gait Speech: Other (Patient nonverbal) Language: Other (Patient nonverbal) Fund of Knowledge: Adequate (Difficult to ascertain patient being nonverbal) Attention and Concentration: Other (Patient nonverbal) Memory: Unremarkable (Difficult to ascertain with patient being nonverbal) Mood: Oppositional Affect: Flat, Blunt Thought Process & Associations: Other (Difficult to ascertain patient being nonverbal) Thought Content: Other (Difficult to ascertain with patient being nonverbal) Hallucination Type: Other (Difficult to ascertain with patient being nonverbal) Delusion Type: Other (Difficult to ascertain due to patient being nonverbal) Suicidal Ideation: Yes Suicidal Plan: Yes Suicidal Intention: Yes Homicidal Ideation: No Homicidal Plan: No Homicidal Intention: No Insight: Poor Judgment: Poor Assessment & Plan Problem List: (1) Brief psychotic disorder ICD Codes: F23 - Brief psychotic disorder (2) History of cocaine abuse ICD Codes: Z87.898 - Personal history of other specified conditions Assessment & Plan 3-5 estimated LOS: days patient at this time remains selectively mute, nonverbal, refuses to answer any of my questions made no eye contact. Though he did roll over on his side on his bed after I left one his meal tray was delivered and started eating his meal. Will have lab attempt to draw blood again and also attempt to get a urine on this gentleman. Others I feel he does meet criteria for involuntary psychiatric hospitalization first opinion, request second opinion, we will also ask for health care surrogate and guardian advocate Discharge Planning To be determined Request HC Surrog/Guard Advoc?: Yes Bar De Paz MD March 06, 2018 13:10
--- NOTE | 2018-03-06 14:04 | PD.PSY.CON ---
Provisional Diagnosis Admission Date March 05, 2018 at 09:42 [place]. Psychotic disorder, brief, history of cocaine abuse History of Present Illness Service Psychiatry Consult Requested By Psychiatry Reason for Consult Second opinion Primary Care Physician Unknown HPI Patient is a 43-year-old -[place] male who comes here under a Manning act of the [place] [employer] dated 03/05/18 at 083 2 AM that document reviewed essentially states law enforcement was contacted in reference to Juliano lima having a knife and locking himself in a bathroom. I made entry into the bathroom and found janie with a plastic bag over his head. Janie stated "no matter what you do I am going to kill myself" lizzy also made several attempts with the seatbelt around his neck in the marked patrol car. Patient was seen and screened in the ED cosigned by the PA and the emergency department physician. It appears patient's behavior was out of control to the point where he was in restraints of necessitated an emergency treatment order of Ativan and Haldol. However no labs were drawn at this point in time there is no documentation of any labs being drawn to verify urine toxicology and blood alcohol level or another metabolic conditions that might contribute to his behaviors. Patient was seen by me this morning with nurse Jen. Prior to my seeing patient he was allowed to take a shower however while in the shower he attempted to tie his clothing around his neck and put a towel over his face. He was removed from the shower and placed on a one-to-one observation level. Patient seen by me while on the one-to-one. He is lying quietly on his bed 2700. Patient's eyes are closed he is lying flat on his back he is refusing to answer any of my questions but appears he is aware of my speaking with him his feet are moving in a somewhat irritable manner. I attempted to explain my need to assess him for his capacity to make decisions concerning his care and help get a history. He refused to answer any questions. I also explained the possibility of a healthcare surrogate/guardian advocate. However as I was leaving the room staff regarding patient's lunch he rolled over, side started eating his lunch will continue to make no eye contact with me and refusing to answer any questions. We will have lab attempt again to get specimen from him. At this time if the patient does meet criteria for an involuntary psychiatric hospitalization thus I will do first opinion request second opinion. I also feel he does not have capacity and I will ask for health care surrogate and the guardian advocate. Review of our EMR shows multiple prior contacts with going back a number of years most of those mental health admissions are related to cocaine abuse. The patient is a 43 years old -[place] man, with no psychiatric history , or no medical history, they corrected by [place] [employer] due to suicidal ideation and disorganized behavior. Patient was consulted for second opinion. The patient has been quite agitated, aggressive with the staff , acutely psychotic, had to be medicated several times in order to calm him down. At the moment of this evaluation the patient is oppositional, resistant, selectively mute no engaging in a conversation. Review of Systems Constitutional: DENIES: Diaphoretic episodes, Fatigue, Fever, Weight gain, Weight loss, Chills, Dizziness, Change in appetite, Night Sweats Endocrine: DENIES: Heat/cold intolerance, Polydipsia, Polyuria, Polyphagia Eyes: DENIES: Blurred vision, Diplopia, Eye inflammation, Eye pain, Vision loss , Photosensitivity, Double Vision Ears, nose, mouth, throat: DENIES: Tinnitus, Hearing loss, Vertigo, Nasal discharge, Oral lesions, Throat pain, Hoarseness, Ear Pain, Running Nose, Epistaxis, Sinus Pain, Toothache, Odynophagia Respiratory: DENIES: Apneas, Cough, Snoring, Wheezing, Hemoptysis, Sputum production, Shortness of breath Cardiovascular: DENIES: Chest pain, Palpitations, Syncope, Dyspnea on Exertion , PND, Lower Extremity Edema, Orthopnea, Claudication Gastrointestinal: DENIES: Abdominal pain, Black stools, Bloody stools, Constipation, Diarrhea, Nausea, Vomiting, Difficulty Swallowing, Anorexia Genitourinary: DENIES: Sexual dysfunction, Urinary frequency, Urinary incontinence, Urgency, Hematuria, Dysuria, Nocturia, Penile Discharge, Testicular Pain, Testicular Swelling Musculoskeletal: DENIES: Joint pain, Muscle aches, Stiffness, Joint Swelling, Back pain, Neck pain Integumentary: DENIES: Abnormal pigmentation, Nail changes, Pruritus, Rash Hematologic/lymphatic: DENIES: Bruising, Lymphadenopathy Immunologic/allergic: DENIES: Eczema, Urticaria Neurologic: DENIES: Abnormal gait, Headache, Localized weakness, Paresthesias, Seizures, Speech Problems, Tremor, Poor Balance Psychiatric: DENIES: Anxiety, Confusion, Mood changes, Depression, Hallucinations, Agitation, Suicidal Ideation, Homicidal Ideation, Delusions Past Family Social History Coded Allergies: No Known Allergies (Verified Allergy, Unknown, 03/05/18) Discontinued Scripts Cephalexin (Cephalexin) 500 Mg Cap, 500 MG PO Q6H for Infection, #28 CAP Prov:Kasey Castrejon MD 04/27/17 Current Medications Medications (Trade) Dose Ordered Sig/Eugene Route Start Time Stop Time Status Last Admin (Tylenol) 650 mg Q4H PRN PO 03/05/18 09:45 (Milk Of Magnesia Liq) 30 ml DAILY PRN PO 03/05/18 09:45 (Mag-Al Plus Susp Liq) 30 ml Q6H PRN PO 03/05/18 09:45 (Habitrol 21 Mg Patch.24 Hr) 1 patch DAILY T-DERMAL 03/05/18 09:45 Miscellaneous Information 1 HS T-DERMAL 03/05/18 21:00 (Benadryl) 50 mg HS PRN PO 03/06/18 21:00 (Atarax) 50 mg Q6H PRN PO 03/06/18 13:00 Patient's Strengths (min. 2) Patient able access healthcare Physical Exam Vital Signs Vital Signs Date Time Temp Pulse Resp B/P (MAP) Pulse Ox O2 Delivery O2 Flow Rate FiO2 03/05/18 13:43 03/05/18 10:00 98.6 59 16 98 Room Air Mental Status Examination Appearance: Disheveled Consciousness: Alert Orientation: Person (Difficult to ascertain due to patient's being nonverbal) Motor Activity: Normal gait Speech: Other (Patient nonverbal) Language: Other (Patient nonverbal) Fund of Knowledge: Adequate (Difficult to ascertain patient being nonverbal) Attention and Concentration: Other (Patient nonverbal) Memory: Unremarkable (Difficult to ascertain with patient being nonverbal) Mood: Oppositional Affect: Flat, Blunt Thought Process & Associations: Other (Difficult to ascertain patient being nonverbal) Thought Content: Other (Difficult to ascertain with patient being nonverbal) Hallucination Type: Other (Difficult to ascertain with patient being nonverbal) Delusion Type: Other (Difficult to ascertain due to patient being nonverbal) Suicidal Ideation: Yes Suicidal Plan: Yes Suicidal Intention: Yes Homicidal Ideation: No Homicidal Plan: No Homicidal Intention: No Insight: Poor Judgment: Poor Assessment & Plan Problem List: (1) Brief psychotic disorder ICD Codes: F23 - Brief psychotic disorder Assessment & Plan: I have seen and examined this patient, reviewed documentation, I agree and concur with Dr. De Paz's assessment and plan. (2) History of cocaine abuse ICD Codes: Z87.898 - Personal history of other specified conditions Assessment & Plan Estimated LOS: days Request HC Surrog/Guard Advoc?: Yes Juan Manuel Mendez MD March 06, 2018 14:04
[2018-03-06 18:32] LABS: BILIRUBIN, URINE NEG (NEG); BLOOD, URINE NEG (NEG); GLUCOSE,URINE NEG (NEG); KETONE, URINE 10 mg/dL (NEG); MUCUS URINE FEW /lpf (OCC); NITRITE,URINE NEG (NEG); SQUAMOUS EPITHELIAL CELL URINE <1 /hpf (0-5); URINE COLOR YELLOW (YELLW/STRAW); URINE LEUKOCYTE ESTERASE NEG (NEG)
[2018-03-06] MEDS: REMOVE OLD NICODERM (NICOTINE) PATCH T-DERMAL SCH (20:54)
[2018-03-06] MEDS ORDERED: diphenhydrAMINE HCL 50 MG CAP PO PRN (21:00)
[2018-03-07] MEDS ORDERED: HALOPERIDOL LACTATE 5 MG/ML AMP ONE ×2 (07:54→07:55)
[2018-03-07] MEDS ORDERED: LORazepam 2 MG/ML VIAL ONE (07:54)
[2018-03-07] MEDS ORDERED: diphenhydrAMINE HCL 50 MG/ML VIAL ONE (07:55)
[2018-03-07] MEDS: NICOTINE 21 MG/24 HR PATCH T-DERMAL SCH (09:00)
[2018-03-07 09:05] VITALS: BP 124/76; PULSE 60; RESP 18; TEMP 98.2; O2SAT 98
[2018-03-07 09:51] LABS: BASOPHIL % 0.3 % (0.0-2.0); EOSINOPHIL # 0.1 TH/MM3 (0-0.4); EOSINOPHIL % 0.8 % (0.0-4.0); HEMATOCRIT 43.5 % (39.0-51.0); HEMOGLOBIN 14.9 GM/DL (13.0-17.0); LYMPH % 23.2 % (9.0-44.0); MEAN CELL VOLUME 89.1 FL (80.0-100.0); MEAN CORPUSCULAR HEMOGLOBIN 30.5 PG (27.0-34.0); MEAN CORPUSCULAR HGB CONC 34.2 % (32.0-36.0); MEAN PLATELET VOLUME 8.3 FL (7.0-11.0); MONO % 6.7 % (0.0-8.0); MONOCYTE # 0.6 TH/MM3 (0-0.9); PLATELET COUNT 311 TH/MM3 (150-450); RED BLOOD COUNT 4.87 MIL/MM3 (4.50-5.90); RED CELL DISTRIBUTION WIDTH 14.7 % (11.6-17.2); WHITE BLOOD COUNT 8.6 TH/MM3 (4.0-11.0)
[2018-03-07 10:00] VITALS: BP 122/66; PULSE 53; O2SAT 98
[2018-03-07 10:15] LABS: ALBUMIN 3.9 GM/DL (3.4-5.0); AST (GOT) 52 U/L (15-37); BICARBONATE 26.6 MEQ/L (21.0-32.0); BLOOD UREA NITROGEN 14 MG/DL (7-18); CALCIUM 9.2 MG/DL (8.5-10.1); CHLORIDE 103 MEQ/L (98-107); CREATININE 1.52 MG/DL (0.60-1.30); GLOMERULAR FILTRATION RATE 61 ML/MIN (>89); GLUCOSE,RANDOM 83 MG/DL (74-106); SODIUM (NA) 138 MEQ/L (136-145)
[2018-03-07 10:16] LABS: ALT (GPT) 33 U/L (12-78); CHOLESTEROL 149 MG/DL (120-200)
[2018-03-07 10:25] LABS: PHOSPHORUS 2.8 MG/DL (2.5-4.9); TROPONIN I LESS THAN 0.02 NG/ML (0.02-0.05)
[2018-03-07 10:26] LABS: ALKALINE PHOSPHATASE 74 U/L (45-117); CHOLESTEROL/ HDL RATIO 2.58 RATIO; HDL CHOLESTEROL 57.6 MG/DL (40.0-60.0); LDL CHOLESTEROL 67 MG/DL (0-99); TOTAL BILIRUBIN ADULT 0.3 MG/DL (0.2-1.0); TOTAL PROTEIN 7.7 GM/DL (6.4-8.2); TRIGLYCERIDES 121 MG/DL (42-150)
--- NOTE | 2018-03-07 10:29 | HHI.PYPN ---
Subjective Chief Complaint: Patient psychotic with suicide attempt Remarks Prior to my seeing patient this morning I received a call from nurse Jen the patient was standing on his bed he would not relinquish the pillowcase that the day prior he had wrapped around his neck. Stating to the nurse "I am loose" I immediately went to the unit. At that time patient was lying quietly on his bed on 2700. Patient nurse and 1 and 1 floor staff were present throughout session. Patient was calm and cooperative with me he states he does not remember his behavior from yesterday. That was smoking cocaine with some friends and is not certain if other drugs were being used. He does minimize his cocaine use the review of documentation going back to April 2004 with a urine toxicology positive for cocaine. He stated that he was has about 4 children from late teens to 5 or 6 years old. That he is employed and that his is employed that they have a good relationship. He did deny suicidality and homicidality voices or visions. He said he has had some type of treatment in the past for his cocaine addiction. He denied any prior purely psychiatric hospitalization. Upon review of our EMR that is verified. He has had multiple contacts here with the appeared to be medical or cocaine related. He later complained of some left-sided chest pain with some pain into his left arm. We did have a hospitalist consult with us on a stat basis labs have been drawn EKG has been done. Dr. Pereira is here to see patient. We are awaiting the results of the initial troponin and then the repeat troponin at 1 PM if they are okay we will get medical clearance for patient to be discharged we will await those lab results Review of Systems Constitutional: DENIES: Diaphoretic episodes, Fatigue, Fever, Weight gain, Weight loss, Chills, Dizziness, Change in appetite, Night Sweats Endocrine: DENIES: Heat/cold intolerance, Polydipsia, Polyuria, Polyphagia Eyes: DENIES: Blurred vision, Diplopia, Eye inflammation, Eye pain, Vision loss , Photosensitivity, Double Vision Ears, nose, mouth, throat: DENIES: Tinnitus, Hearing loss, Vertigo, Nasal discharge, Oral lesions, Throat pain, Hoarseness, Ear Pain, Running Nose, Epistaxis, Sinus Pain, Toothache, Odynophagia Respiratory: DENIES: Apneas, Cough, Snoring, Wheezing, Hemoptysis, Sputum production, Shortness of breath Cardiovascular: COMPLAINS OF: Chest pain Gastrointestinal: DENIES: Abdominal pain, Black stools, Bloody stools, Constipation, Diarrhea, Nausea, Vomiting, Difficulty Swallowing, Anorexia Genitourinary: DENIES: Sexual dysfunction, Urinary frequency, Urinary incontinence, Urgency, Hematuria, Dysuria, Nocturia, Penile Discharge, Testicular Pain, Testicular Swelling Musculoskeletal: DENIES: Joint pain, Muscle aches, Stiffness, Joint Swelling, Back pain, Neck pain Integumentary: DENIES: Abnormal pigmentation, Nail changes, Pruritus, Rash Hematologic/lymphatic: DENIES: Bruising, Lymphadenopathy Immunologic/allergic: DENIES: Eczema, Urticaria Neurologic: DENIES: Abnormal gait, Headache, Localized weakness, Paresthesias, Seizures, Speech Problems, Tremor, Poor Balance Psychiatric: DENIES: Anxiety, Confusion, Mood changes, Depression, Hallucinations, Agitation, Suicidal Ideation, Homicidal Ideation, Delusions Mental Status Examination Appearance: Appropriate Consciousness: Alert Orientation: x4 Motor Activity: Normal gait Speech: Unremarkable Language: Adequate Fund of Knowledge: Adequate (Difficult to ascertain patient being nonverbal) Attention and Concentration: Adequate Memory: Unremarkable Mood: Other (Euthymic to mildly dysphoric) Affect: Flat, Blunt Thought Process & Associations: Intact Thought Content: Appropriate Hallucination Type: None Delusion Type: None Suicidal Ideation: No (Denies at this time) Suicidal Plan: No (Denies at this time) Suicidal Intention: No (Denies at this time) Homicidal Ideation: No Homicidal Plan: No Homicidal Intention: No Insight: Poor Judgment: Poor Results Labs Test 03/06/18 17:00 03/07/18 09:20 Urine Color YELLOW Urine Turbidity CLEAR Urine pH 6.0 Urine Specific [place] 1.027 Urine Protein TRACE mg/dL Urine Glucose (UA) NEG mg/dL Urine Ketones 10 mg/dL Urine Occult Blood NEG Urine Nitrite NEG Urine Bilirubin NEG Urine Urobilinogen 2.0 MG/DL Urine Leukocyte Esterase NEG Urine WBC LESS THAN 1 /hpf Urine Squamous Epithelial Cells <1 /hpf Urine Mucus FEW /lpf Microscopic Urinalysis Comment CULT NOT INDICATED Urine Opiates Screen NEG Urine Barbiturates Screen NEG Urine Amphetamines Screen NEG Urine Benzodiazepines Screen NEG Urine Cocaine Screen POS Urine Cannabinoids Screen POS White Blood Count 8.6 TH/MM3 Red Blood Count 4.87 MIL/MM3 Hemoglobin 14.9 GM/DL Hematocrit 43.5 % Mean Corpuscular Volume 89.1 FL Mean Corpuscular Hemoglobin 30.5 PG Mean Corpuscular Hemoglobin Concent 34.2 % Red Cell Distribution Width 14.7 % Platelet Count 311 TH/MM3 Mean Platelet Volume 8.3 FL Neutrophils (%) (Auto) 69.0 % Lymphocytes (%) (Auto) 23.2 % Monocytes (%) (Auto) 6.7 % Eosinophils (%) (Auto) 0.8 % Basophils (%) (Auto) 0.3 % Neutrophils # (Auto) 6.0 TH/MM3 Lymphocytes # (Auto) 2.0 TH/MM3 Monocytes # (Auto) 0.6 TH/MM3 Eosinophils # (Auto) 0.1 TH/MM3 Basophils # (Auto) 0.0 TH/MM3 CBC Comment DIFF FINAL Differential Comment Vitals/IOs Vital Signs Date Time Temp Pulse Resp B/P (MAP) Pulse Ox O2 Delivery O2 Flow Rate FiO2 03/05/18 13:43 03/05/18 10:00 98.6 59 16 98 Room Air Assessment & Plan Problem List: (1) Brief psychotic disorder ICD Codes: F23 - Brief psychotic disorder (2) History of cocaine abuse ICD Codes: Z87.898 - Personal history of other specified conditions Assessment & Plan Estimated LOS: days patient mental status has improved his nonverbal alert oriented, and cooperative. He denies suicidality or homicidality voices or visions. Though it appears she did have an episode of chest pain today we are having that assessed labs have been drawn EKG has been done we are waiting for lab results. Hospitalist is seeing patient also. If he is medically cleared will allow him to be discharged today to himself Justification for Cont. Inpt. See above Discharge Planning See above Request HC Surrog/Guard Advoc?: No Bar De Paz MD March 07, 2018 10:29
--- NOTE | 2018-03-07 13:28 | PD.CONS ---
HPI Service [facility] Consult Requested By Psychiatry Reason for Consult Left-sided chest pain in a patient with history of cocaine abuse. Primary Care Physician Unknown Diagnoses: History of Present Illness Mr. Cheema is a pleasant 43-year-old -Citizen Of [place] male who was admitted to psychiatric unit due to suicidal ideations. Patient complained of left-sided chest pain today. He has a history of cocaine use. Due to chest pain, psychiatrically consulted hospital service on an urgent basis. I went to see patient immediately. Patient complains of left-sided chest pain that happened this morning around 9 or 9:30 AM. He reports left-sided sharp chest pain with no radiation. No nausea vomiting or diaphoresis. Chest pain lasted about 10 minutes. No fever or chills no cough no abdominal pain. At the time of this interview around 10:15 AM patient reports no chest pain. However when he presses on his left chest he complains of chest discomfort. Review of Systems Except as stated in HPI: all other systems reviewed are Neg Past Family Social History Allergies: Coded Allergies: No Known Allergies (Verified Allergy, Unknown, 03/05/18) Past Medical History No significant medical history. He has a history of tobacco, alcohol and illicit drug use. Past Surgical History No history of any significant surgery. Reported Medications Does not take any medication on a regular basis Family History Father with heart disease. Social History Patient smokes about half a pack a day. Drinks 2 beers a day. Occasionally does cocaine. Physical Exam Vital Signs Vital Signs Date Time Temp Pulse Resp B/P (MAP) Pulse Ox O2 Delivery O2 Flow Rate FiO2 03/07/18 10:00 53 122/66 (84) 98 03/07/18 09:05 98.2 60 18 124/76 (92) 98 Physical Exam GENERAL: This is a well-nourished, well-developed patient, in no apparent distress. SKIN: No rashes, ecchymoses or lesions. Warm and dry. HEAD: Atraumatic. Normocephalic. No temporal or scalp tenderness. EYES: Pupils equal round and reactive. No injection or drainage. ENT: Nose without bleeding, purulent drainage or septal hematoma. Airway patent. NECK: Trachea midline. No lymphadenopathy. Supple, nontender, no meningeal signs. CARDIOVASCULAR: Regular rate and rhythm without murmurs, gallops, or rubs. No JVD. RESPIRATORY: Clear to auscultation. Breath sounds equal bilaterally. No wheezes , rales, or rhonchi. GASTROINTESTINAL: Abdomen soft, non-tender, nondistended. No guarding. MUSCULOSKELETAL: Extremities without clubbing, cyanosis, or edema. NEUROLOGICAL: Awake and alert. Cranial nerves II through XII intact. No focal neurological deficits. Normal speech. Laboratory Laboratory Tests Test 03/06/18 17:00 03/07/18 09:20 Urine Color YELLOW Urine Turbidity CLEAR Urine pH 6.0 Urine Specific [place] 1.027 Urine Protein TRACE Urine Glucose (UA) NEG Urine Ketones 10 Urine Occult Blood NEG Urine Nitrite NEG Urine Bilirubin NEG Urine Urobilinogen 2.0 Urine Leukocyte Esterase NEG Urine WBC LESS THAN 1 Urine Squamous Epithelial Cells <1 Urine Mucus FEW Microscopic Urinalysis Comment CULT NOT INDICATED Urine Opiates Screen NEG Urine Barbiturates Screen NEG Urine Amphetamines Screen NEG Urine Benzodiazepines Screen NEG Urine Cocaine Screen POS Urine Cannabinoids Screen POS White Blood Count 8.6 Red Blood Count 4.87 Hemoglobin 14.9 Hematocrit 43.5 Mean Corpuscular Volume 89.1 Mean Corpuscular Hemoglobin 30.5 Mean Corpuscular Hemoglobin Concent 34.2 Red Cell Distribution Width 14.7 Platelet Count 311 Mean Platelet Volume 8.3 Neutrophils (%) (Auto) 69.0 Lymphocytes (%) (Auto) 23.2 Monocytes (%) (Auto) 6.7 Eosinophils (%) (Auto) 0.8 Basophils (%) (Auto) 0.3 Neutrophils # (Auto) 6.0 Lymphocytes # (Auto) 2.0 Monocytes # (Auto) 0.6 Eosinophils # (Auto) 0.1 Basophils # (Auto) 0.0 CBC Comment DIFF FINAL Differential Comment Blood Urea Nitrogen 14 Creatinine 1.52 Random Glucose 83 Total Protein 7.7 Albumin 3.9 Calcium Level 9.2 Alkaline Phosphatase 74 Aspartate Amino Transf (AST/SGOT) 52 Alanine Aminotransferase (ALT/SGPT) 33 Total Bilirubin 0.3 Sodium Level 138 Potassium Level 4.1 Chloride Level 103 Carbon Dioxide Level 26.6 Anion Gap 8 Estimat Glomerular Filtration Rate 61 Phosphorus Level 2.8 Total Creatine Kinase 2289 Creatine Kinase MB 4.8 Creatine Kinase MB % 0.2 Troponin I LESS THAN 0.02 Triglycerides Level 121 Cholesterol Level 149 LDL Cholesterol 67 HDL Cholesterol 57.6 Cholesterol/HDL Ratio 2.58 Thyroid Stimulating Hormone 3rd Gen 2.240 Ethyl Alcohol Level LESS THAN 3 Result Diagram: 03/07/18 0920 03/07/18 0920 Assessment and Plan Problem List: (1) Chest pain ICD Code: R07.9 - Chest pain Status: Acute (2) Tobacco abuse ICD Code: Z72.0 - Tobacco abuse Status: Acute (3) Substance abuse ICD Code: F19.10 - Substance abuse Status: Acute (4) Cocaine abuse ICD Code: F14.10 - Cocaine abuse, uncomplicated Status: Acute Assessment and Plan Mr. Cheema is a pleasant 43-year-old -Citizen Of [place] male who was admitted to the psychiatric unit due to suicidal ideations. Patient complained of left- sided chest pain which prompted a consultation to hospitalist service. Patient reports left-sided localized chest discomfort sharp in nature with no radiation. No nausea vomiting or diaphoresis. Chest discomfort Costochondritis -Physical examination is consistent with costochondritis. -Counseled patient at length regarding cocaine abuse and coronary vessel spasm which can cause cardiac injury. -We will check troponins 2. If 2 troponins are negative, patient can be discharged from medical standpoint. 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 His creatinine was 1.52 on 03/07/2018. His previous creatinine was 1.5-1.6 range. -Will oral hydration would be advised. Tobacco, alcohol, illicit drug use. -Patient is advised to refrain from cocaine abuse. Also advised patient to consider quitting alcohol and tobacco. Full code. Ambulation. Thank you for the consult. We will continue to follow this patient with you while patient is in the hospital. Vladislav Pereira DO March 07, 2018 1:28 pm
--- NOTE | 2018-03-07 13:36 | HHI.DS ---
Psychiatry Discharge Summary Inpatient Psychiatric care?: Yes Advance Directive: No Mental Health AdvanceDirective: No Health Care Proxy: No Admission Admission Date March 05, 2018 at 09:42 Admission Diagnosis: (1) Brief psychotic disorder ICD Code: F23 - Brief psychotic disorder Brief History Patient is a 43-year-old -[place] male who comes here under a Manning act of the [place] dated 03/05/18 at 083 2 AM that document reviewed essentially states law enforcement was contacted in reference to Juliano lima having a knife and locking himself in a bathroom. I made entry into the bathroom and found janie with a plastic bag over his head. Janie stated "no matter what you do I am going to kill myself" lizzy also made several attempts with the seatbelt around his neck in the marked patrol car. Patient was seen and screened in the ED cosigned by the PA and the emergency department physician. It appears patient's behavior was out of control to the point where he was in restraints of necessitated an emergency treatment order of Ativan and Haldol. However no labs were drawn at this point in time there is no documentation of any labs being drawn to verify urine toxicology and blood alcohol level or another metabolic conditions that might contribute to his behaviors. Patient was seen by me this morning with nurse Jen. Prior to my seeing patient he was allowed to take a shower however while in the shower he attempted to tie his clothing around his neck and put a towel over his face. He was removed from the shower and placed on a one-to-one observation level. Patient seen by me while on the one-to-one. He is lying quietly on his bed 2700. Patient's eyes are closed he is lying flat on his back he is refusing to answer any of my questions but appears he is aware of my speaking with him his feet are moving in a somewhat irritable manner. I attempted to explain my need to assess him for his capacity to make decisions concerning his care and help get a history. He refused to answer any questions. I also explained the possibility of a healthcare surrogate/guardian advocate. However as I was leaving the room staff regarding patient's lunch he rolled over, side started eating his lunch will continue to make no eye contact with me and refusing to answer any questions. We will have lab attempt again to get specimen from him. At this time if the patient does meet criteria for an involuntary psychiatric hospitalization thus I will do first opinion request second opinion. I also feel he does not have capacity and I will ask for health care surrogate and the guardian advocate. Review of our EMR shows multiple prior contacts with going back a number of years most of those mental health admissions are related to cocaine abuse. Tobacco Use In Past 30 Days: Refused To Answer Alcohol Use: Never Hospital Course Patient's hospital course was uneventful related to an episode of left chest pain with radiation to the left arm that occurred earlier today. Lab tests were drawn his initial INR was within normal limits electrocardiogram was cleared by the hospitalist. Patient became somewhat agitated and anxious demanding to leave prior to the repeat INR draw. With this time patient longer meets criteria to be kept in an inpatient psychiatric unit either voluntarily or involuntarily. Thus I am lifting the Manning act. Allow patient to be discharged on AMA basis. I have advised him that the medicine service is advised him of the potential for cardiac problems to occur related to his symptoms of his lab work is come back okay and his EKG is okay for discharge. We will allow him to sign AMA strong recommendation for absolute abstinence, recommendation follow-up and a recommendation follow-up [facility] act outpatient involuntary substance abuse assessment also strong recommendation follow-up [facility] [facility] [facility] within 1 week Results Blood Pressure 122 / 66 Vital Signs Date Time Temp Pulse Resp B/P (MAP) Pulse Ox O2 Delivery O2 Flow Rate FiO2 03/07/18 10:00 53 122/66 (84) 98 03/07/18 09:05 98.2 18 03/05/18 10:00 Room Air Laboratory Tests Test 03/06/18 17:00 03/07/18 09:20 Urine Ketones 10 mg/dL (NEG) Urine Mucus FEW /lpf (OCC) Urine Cocaine Screen POS (NEG) Urine Cannabinoids Screen POS (NEG) Creatinine 1.52 MG/DL (0.60-1.30) Aspartate Amino Transf (AST/SGOT) 52 U/L (15-37) Estimat Glomerular Filtration Rate 61 ML/MIN (>89) Total Creatine Kinase 2289 U/L (39-308) Creatine Kinase MB 4.8 NG/ML (0.5-3.6) Troponin I LESS THAN 0.02 NG/ML Laboratory Results Test 03/07/18 09:20 Cholesterol Level 149 MG/DL (120-200) HDL Cholesterol 57.6 MG/DL (40.0-60.0) LDL Cholesterol 67 MG/DL (0-99) Triglycerides Level 121 MG/DL (42-150) Summary of Major Lab Results Urine toxicology positive for cocaine and marijuana Summary of Procedures None done Pending results at discharge: No Medications # of Antipsychotic meds at D/C: 0 Approp Antipsych med options 1 - Minimum of three failed multiple trials of monotherapy. 2 - Documented plan to taper to monotherapy due to previous use of multiple meds OR cross-taper in progress at D/C. 3 - Documentation of augmentation of Clozapine. 4 - Justification other than those listed in allowable values 1-3, document here : Discharge Discharge Date: March 07, 2018 Discharge Diagnosis: (1) Brief psychotic disorder Diagnosis: Principal ICD Code: F23 - Brief psychotic disorder (2) Cocaine abuse ICD Code: F14.10 - Cocaine abuse, uncomplicated Status: Acute (3) Chest pain Diagnosis: Secondary ICD Code: R07.9 - Chest pain Status: Acute Pt Condition on Discharge: Stable Discharge Disposition: Discharge Home Discharge Instructions Diet Instructions: Heart Healthy Diet Scheduled Appointment: Follow-up [place] [facility] for further treatment of chest pain, referred to an 80, refer to [facility] [place] voluntary outpatient substance abuse assessment Discharge Time > 30 minutes Mental Status Examination Appearance: Appropriate Consciousness: Alert Orientation: x4 Motor Activity: Normal gait Speech: Unremarkable Language: Adequate Fund of Knowledge: Adequate (Difficult to ascertain patient being nonverbal) Attention and Concentration: Adequate Memory: Unremarkable Mood: Other (Euthymic to mildly dysphoric) Affect: Flat, Blunt Thought Process & Associations: Intact Thought Content: Appropriate Hallucination Type: None Delusion Type: None Suicidal Ideation: No (Denies at this time) Suicidal Plan: No (Denies at this time) Suicidal Intention: No (Denies at this time) Homicidal Ideation: No Homicidal Plan: No Homicidal Intention: No Insight: Poor Judgment: Poor Discharge/Advance Care Plan Health Problems: (1) Brief psychotic disorder (2) History of cocaine abuse Goals to promote your health * To prevent worsening of your condition and complications * To maintain your health at the optimal level Directions to meet your goals Take your medications as prescribed Follow your dietary instruction Follow activity as directed Keep your appointments as scheduled Take your immunizations and boosters as scheduled If your symptoms worsen call your PCP, if no PCP go to Urgent Care Center or Emergency Room For 27/05 questions related to your inpatient stay or results of tests pending at discharge, please contact Dr. Bar De Paz at Smoking is Dangerous to Your Health. Avoid second hand smoking Bar De Paz MD March 07, 2018 13:36
[2018-03-07 14:57] LABS: HEMOGLOBIN A1C 5.6 % (4.3-6.0)
--- NOTE | 2018-03-07 18:05 | EKG ---
Date Performed: 03/07/2018 Time Performed: 09:22:11 PTAGE: 43 years EKG: SINUS BRADYCARDIA POSSIBLE LEFT ATRIAL ENLARGEMENT BORDERLINE LEFT AXIS DEVIATION BORDERLIN E ECG Since the PREVIOUS TRACING , no significant change noted PREVIOUS TRACIN02/12/2017 23.41 DOCTOR: Ron Urena Interpretating Date/Time 03/07/2018 16:34:41
== END 2018-03-07 14:25 | disposition left against medical advice (07) | DRG 885 ==
LOC: NEPJ 08:57 → NEDA 09:42 → H270 13:15
PROVIDERS: ADMIT Psychiatry & Neurology Psychiatry; ATTEND Psychiatry & Neurology Psychiatry
DX: F23 Brief psychotic disorder (principal); R45.851 Suicidal ideations; F14.10 Cocaine abuse, uncomplicated; M94.0 Chondrocostal junction syndrome [Tietze]; N18.2 Chronic kidney disease, stage 2 (mild); Z72.0 Tobacco use
CPT/HCPCS: 80053; 80061; 80307; 81001; 82550; 82552; 83036; 84100; 84443; 84484; 85025; 93005; 96372; G0481; J1200; J1630; J2060